=== PATIENT | female | born 1965 | race Caucasian/White ===

== ENCOUNTER 2018-09-18 07:54 | Emergency (ER) | payer BC ==
[~2018-09-18] VITALS: Ht 154.9 cm; Wt 72.6 kg
[~2018-09-18 07:54] MED LIST: BUPROPION HCL150 M2 PO; CIPRO500 MG PO; DESYREL50 MG PO; ESCITALOPRAM OXA5 MG PO; FENOGLIDE120 MG PO; FLUOXETINE HCL20 MG PO; NORCO 5-325 TA1 EACH PO; PERCOCET 10-321 EACH PO; TRAZODONE HCL50 MG PO
[2018-09-18] MEDS ORDERED: HYDROXYZINE HCL10 MG PO (08:08)
[2018-09-18] MEDS ORDERED: ATORVASTATIN CA10 MG PO (08:08)
[2018-09-18] MEDS ORDERED: ONDANSETRON ODT8 MG PO (09:02)
[2018-09-18] MEDS ORDERED: PERCOCET 5-3251 EACH PO (09:02)
== END 2018-09-18 09:22 | disposition home or self-care (01) ==
LOC: ED 07:54
DX: S06.0X0A Concussion without loss of consciousness, initial encounter (principal); Z85.3 Personal history of malignant neoplasm of breast; Z87.442 Personal history of urinary calculi; Z90.710 Acquired absence of both cervix and uterus; Z88.2 Allergy status to sulfonamides; Z79.899 Other long term (current) drug therapy; W00.0XXA Fall on same level due to ice and snow, initial encounter
CPT/HCPCS: 70450; 72125; 96372; 99283-25; J1885

== ENCOUNTER 2020-09-26 16:40 | Emergency (ER) | payer BC ==
[~2020-09-26] VITALS: Ht 152.4 cm; Wt 93.0 kg
[~2020-09-26 16:40] MED LIST changes: +ATORVASTATIN CA10 MG PO; +HYDROXYZINE HCL10 MG PO; +ONDANSETRON ODT8 MG PO; +PERCOCET 5-3251 EACH PO
[2020-09-26] MEDS ORDERED: LOSARTAN POTASS50 MG PO (17:16)
[2020-09-26] MEDS ORDERED: AMLODIPINE BESY10 MG PO (17:16)
[2020-09-26] MEDS ORDERED: DESVENLAFAXINE50 MG PO (17:17)
== END 2020-09-27 00:38 | disposition home or self-care (01) ==
LOC: ED 16:40
DX: G43.909 Migraine, unspecified, not intractable, without status migrainosus (principal); Z85.3 Personal history of malignant neoplasm of breast; I10 Essential (primary) hypertension; E78.5 Hyperlipidemia, unspecified; Z88.2 Allergy status to sulfonamides; Z79.899 Other long term (current) drug therapy
CPT/HCPCS: 70450; 96374; 96375; 99283-25; J1200; J1885; J7030